=== PATIENT | male | born 1985 | race African-American/Black ===

== ENCOUNTER 2018-06-01 15:19 | Emergency (ER) | payer MEDICARE, OTHER | END 2018-06-01 16:27 | disposition home or self-care (01) | LOC: E/R 15:19 | DX: S09.90XA Unspecified injury of head, initial encounter (principal); S01.511A Laceration without foreign body of lip, initial encounter; S09.93XA Unspecified injury of face, initial encounter; F17.210 Nicotine dependence, cigarettes, uncomplicated; F10.129 Alcohol abuse with intoxication, unspecified; Y04.0XXA Assault by unarmed brawl or fight, initial encounter | CPT/HCPCS: 70450; 99284-25 ==